=== PATIENT | female | born 1980 | race Caucasian/White ===

== ENCOUNTER → 2024-04-28 | Outpatient (CLI) | payer BC ==
--- NOTE | 2024-04-28 17:21 | CT ---
EXAMINATION TYPE: CT angio head DATE OF EXAM: 04/28/2024 4:58 PM COMPARISON: None. CLINICAL INDICATION: Female, 43 years old with history of G43.709 Migraine Z82.49 FAMILY HX OF ISCHEM HEART, Migraines for years. Family history of anuerysm., TECHNIQUE: CTA [place]/head with 3-D reconstruction is performed. Estimated carotid stenosis was calcul ated using the NASCET criteria IV CONTRAST: with IV Contrast, patient injected with 65ml mL of Isovue 370. (None if empty) CT DLP: 2068.9 mGycm, Automated exposure control for dose reduction was used. FINDINGS: Vertebrobasilar system as well as intracranial portions of the internal carotid arteries and their ma ollie tributaries are patent. I do not see evidence for sizable aneurysm or vascular malformation. Pl ease note MRI provides greater sensitivity and specificity. Visualized brain appears grossly unremar kable. IMPRESSION: No evidence for sizable aneurysm or vascular malformation. [facility], , 04/28/2024 5:18 PM
--- NOTE | 2024-04-28 17:48 | MR ---
EXAMINATION TYPE: MR brain and iac wo/w con DATE OF EXAM: 04/28/2024 5:37 PM COMPARISON: None. CLINICAL INDICATION: Female, 43 years old with history of G43.709 Migraine Z82.49 FAMILY HX OF ISCHEM HEART, TECHNIQUE: Multiplanar and multispin-echo imaging of the brain was performed both before and after the administr ation of contrast. High-resolution images are obtained of the internal auditory canals performed uti lizing Gadobutrol 7ml FINDINGS: The ventricles, basal cisterns and sulci overlying the cerebral convexities are within normal limits. There is no evidence for midline shift or mass effect. Acute intracranial hemorrhage or extra-axial collection is not evident. There are a few scattered tiny focal areas of increased signal within the deep white matter both cere bral hemispheres which are nonspecific and can be seen in patients with chronic migraine headaches, v asculitis, sequela of Lyme's disease as well as demyelinating process. Correlate clinically. High-resolution imaging of the internal auditory canals fails demonstrate evidence for an enhancing a coustic schwannoma or cerebellopontine cistern angle mass. Following contrast administration, there is no evidence for pathologic enhancement or enhancing mass. The paranasal sinuses and mastoid air cells are well-aerated. IMPRESSION: 1. No evidence of acoustic schwannoma or cerebellopontine angle mass. 2.There are a few scattered tiny focal areas of increased signal within the deep white matter both ce rebral hemispheres which are nonspecific and can be seen in patients with chronic migraine headaches, vasculitis, sequela of Lyme's disease as well as demyelinating process. Correlate clinically. [facility], , 04/28/2024 5:46 PM
== END | disposition home or self-care (01) ==
LOC: RADCTMAIN 15:44
PROVIDERS: ATTEND Psychiatry & Neurology Neurology
DX: G43.709 Chronic migraine without aura, not intractable, without status migrainosus (principal); Z82.49 Family history of ischemic heart disease and other diseases of the circulatory system
CPT/HCPCS: 70496; 70553; Q9967; A9585